=== PATIENT | female | born 1995 | race Caucasian/White ===

== ENCOUNTER 2021-08-22 00:29 | Emergency (ER) | payer OTHER, SELFPAY ==
[2021-08-22 00:30] VITALS: BP 132/57; PULSE 107; RESP 21; TEMP 39.3; O2SAT 98; BMI 28.8
[2021-08-22 00:34] VITALS: BP 132/57; PULSE 107; RESP 21; TEMP 39.3; O2SAT 98
--- NOTE | 2021-08-22 01:03 | EKG12_ITS ---
Test Reason : CP Blood Pressure : / mmHG Vent. Rate : 107 BPM Atrial Rate : 107 BPM P-R Int : 188 ms QRS Dur : 090 ms QT Int : 316 ms P-R-T Axes : 057 092 042 degrees QTc Int : 421 ms Sinus tachycardia Otherwise normal ECG Confirmed by ANGELA MASTERS, JEFFERSON ([id number]), clinical editor TAMMY MOFFETT ([id number]) on 08/24/2021 11:30:27 AM Referred By: NAHID Confirmed By:JEFFERSON MILLER MD
--- NOTE | 2021-08-22 01:07 | RAD_ITS ---
EXAM: XR CHEST, 1 VIEW CLINICAL INDICATION: Fever TECHNIQUE: Frontal view of the chest. This report was created using [employer] report generation technology. COMPARISON: None. FINDINGS: LUNGS AND PLEURAL SPACES: Question groundglass opacity at the right lower lung which may be infectious or inflammatory. No pneumothorax. No effusion. HEART: Unremarkable. Cardiac silhouette not enlarged. MEDIASTINUM: Central airways and mediastinal contour are unremarkable. BONES/JOINTS: Unremarkable. SOFT TISSUES: Unremarkable. RAD/Chest 1 View (Portable) IMPRESSION: Question groundglass opacity at the right lower lung which may be infectious or inflammatory. Electronically Signed: Michael Leigh MD at 1:52 EST Tel , Service support ,
[2021-08-22 01:13] LABS: Absolute Lymphocyte Count 2.46 X10^3/uL (0.83-4.51); Absolute Neutrophil Count 9.1 X10^3/uL (2.0-7.7); Basophil# 0.02 X10^3/uL; Basophil% 0.2 % (0-1); Eosinophil# 0.05 X10^3/uL; Eosinophils% 0.4 % (0-5); Hematocrit 38.2 % (37-47); Hemoglobin 12.2 g/dL (12.0-15.0); Lymphocyte # 2.46 X10^3/ul (0.83-4.51); Lymphocyte % 19.4 % (19-41); Mean Corp Hgb Conc 31.9 g/dL (32-36); Mean Corpuscular Hgb 27.2 pg (27.0-32.0); Mean Corpuscular Volume 85.3 fL (81-99); Monocyte# 0.98 X10^3/uL; Monocyte% 7.7 % (0-10); NRBC Flagged by Analyzer 0 % (0-5); Neutrophil # 9.12 X10^3/uL (2.7-7.7); Platelet Count 261 K/mm3 (150-450); RBC Distribution Width CV 13.7 % (11.6-14.6); RBC Distribution Width SD 43.1 fl (35.1-43.9); Red Blood Count 4.48 M/mm3 (4.2-5.4); White Blood Count 12.7 K/mm3 (4.4-11.0)
[2021-08-22] MEDS: Acetaminophen 500 MG Tablet 1000 MG PO (01:17)
[2021-08-22] MEDS: 0.9% Normal Saline 1,000 ML 1000 ML IV (01:17)
[2021-08-22 01:26] LABS: ALB/GLOB Ratio 0.9 RATIO (0.9-2.4); AST(SGOT) 16 U/L (15-37); Alanine Aminotransfer ALT/SGPT 14 U/L (13-56); Albumin, Serum 3.5 g/dL (3.2-5.0); Alkaline Phosphatase 82 U/L (45-117); Anion Gap 6 (5-15); BUN 8 mg/dL (7-18); BUN/Creat Ratio 11.2 RATIO (10-20); Calcium,Total 8.8 mg/dL (8.5-10.1); Chloride 106 mmol/L (98-107); Creatinine, Serum 0.72 mg/dL (0.55-1.02); EST Glomerular Filtration Rate 104 mL/min (>60); Est Glom Filt Rate - Afr Amer 126 mL/min (>60); Globulin 3.8 g/dL (2.2-4.2); Glucose 106 mg/dL (74-106); Potassium 3.6 mmol/L (3.5-5.1); Protein, Total 7.3 g/dL (6.4-8.2); Sodium Level 138 mmol/L (136-145)
--- NOTE | 2021-08-22 02:03 | EDS_ITS ---
HPI History of Present Illness Chief Complaint: Fever Informant: patient and spouse/S.O. Onset/Context/Timing Onset: Today Context: Sudden Onset Timing: Continuous Quality: Sharp Location: Right chest Worsened by: Coughing, breathing Relieved by: Nothing Narrative Narrative: Patient presents with fever and chest pain that began today. Patient describes her pain as sharp. Patient states it is over the right side of her chest. Patient states it is worse with coughing and deep breathing. Patient told EMS that it felt similar to prior cases of mastitis. Patient admits to subjective fevers and chills at home. Patient admits to a cough but denies any sputum production. Patient also admits to some nausea but denies any vomiting. Patient admits to some pain in her neck and back as well. PFSH PFSH Medical History no medical history no medical history Home Medications azithromycin 250 mg PO DAILY #4 tablet 08/22/21 [Rx Last Taken Unknown] Allergy/AdvReac Type Severity Reaction Status Date / Time No Known Allergies Allergy Verified 08/22/21 00:34 Surgical History History of tonsillectomy Social History Smoking Status: Never smoker ROS ROS ED Constitutional Constitutional ED: Reports chills, fever(s) and subjective Eyes Eyes: Denies blurry vision or change in vision ENT ENT ED: Denies rhinorrhea or sore throat Cardiovascular Cardiovascular: Reports chest pain; Denies palpitations Respiratory/Chest Respiratory/Chest: Reports cough and dyspnea Gastrointestinal Gastrointestinal: Reports nausea; Denies vomiting Genitourinary Genitourinary ED: Denies dysuria or hematuria Musculoskeletal Musculoskeletal: Reports back pain and neck pain Integumentary Denies abscess or rash Neurologic Neurologic: Denies headache(s) or weakness Allergic/Immunologic Allergic/Immunologic ED: Denies mouth swelling or urticaria EXAM Physical Exam Const Vital Signs: 08/22/21 00:30 08/22/21 00:34 08/22/21 00:36 Temperature 102.7 F H 102.7 F H Temperature Source Temporal Temporal Pulse Rate 107 H 107 H Respiratory Rate 21 H 21 H Respiratory Effort Normal Respiratory Pattern Tachypnea Blood Pressure 132/57 H 132/57 H Blood Pressure Mean 82 82 Pulse Ox 98 98 Oxygen Delivery Method Room Air Room Air 08/22/21 02:30 Temperature 99.0 F Temperature Source Temporal Pulse Rate 98 Respiratory Rate 22 H Respiratory Effort Respiratory Pattern Blood Pressure 122/60 H Blood Pressure Mean 80 Pulse Ox 96 Oxygen Delivery Method Room Air Positive well nourished and well developed General Appearance ED: well developed HEENT Reports moist mucous membranes Neck supple and no JVD Chest Wall inspection of chest normal and palpation of chest normal Resp normal respiratory effort and clear to auscultation bilaterally Cardio regular rate, regular rhythm and no murmurs GI normal to inspection, nondistended, normoactive bowel sounds and non-tender Palpation: soft Extremity normal to inspection General Extremety ED: Negative for edema or tenderness General Extremity: Negative for edema Neuro oriented x3, CN's II-XII intact bilaterally and no sensory deficits noted Sensorium / Orientation: alert Motor Exam: strength 5/5 throughout Psych mental status grossly normal Skin no rashes or lesions noted MDM MDM MDM Narrative Medical decision making narrative: Patient was given IV fluids and Tylenol here. EKG was obtained. On my interpretation, it showed a sinus tachycardia with a rate of 107. NM interval, QRS interval, and QTc intervals were all normal. Healy was normal. There are no acute ST or T wave changes. COVID-19 rapid antigen was obtained and was negative. CBC shows a mild leukocytosis of 12.7. Comprehensive metabolic profile was essentially within normal limits. Portable chest x-ray was obtained. There is 1 view. On my interpretation, there is a questionable groundglass infiltrate in the right lower lobe. There is no cardiomegaly noted. Bony thorax is normal. Radiologist also interpreted the x- rays and agrees. COVID-19 team PCR was obtained and was negative. Urinalysis does not show any evidence of urinary tract infection. Patient is afebrile on reevaluation. Patient was given a dose of Zithromax here. Patient was given a prescription for Zithromax. Patient was instructed to follow-up with her primary care physician in 5 to 7 days. Patient understood and was agreeable with the plan. All questions were answered. Lab Data Attestation: I reviewed the patient's lab results. Labs: Laboratory Results - last 24 hr 08/22/21 08/22/21 08/22/21 00:33 00:33 02:05 WBC 12.7 H RBC 4.48 Hgb 12.2 Hct 38.2 MCV 85.3 MCH 27.2 MCHC 31.9 L RDW Std Deviation 43.1 RDW Coeff of Love 13.7 Plt Count 261 MPV 9.0 Immature Gran % (Auto) 0.300 Neut % (Auto) 72.0 H Lymph % (Auto) 19.4 [place] % (Auto) 7.7 Eos % (Auto) 0.4 Baso % (Auto) 0.2 Absolute Neuts (auto) 9.1 H Absolute Lymphs (auto) 2.46 Nucleated RBC % 0 Sodium 138 Potassium 3.6 Chloride 106 Carbon Dioxide 26.0 Anion Gap 6 BUN 8 Creatinine 0.72 Estim Creat Clear Calc 84.30 Est GFR (MDRD) Af Amer 126 Est GFR (MDRD) Non-Af 104 BUN/Creatinine Ratio 11.2 Glucose 106 Calcium 8.8 Total Bilirubin 0.70 AST 16 ALT 14 Alkaline Phosphatase 82 Total Protein 7.3 Albumin 3.5 Globulin 3.8 Albumin/Globulin Ratio 0.9 Urine Color Straw Urine Clarity Clear Urine pH 6.5 Ur Specific Cat[place]ina 1.010 Urine Protein Negative Urine Glucose (UA) Normal Urine Ketones 50 H Urine Occult Blood Negative Urine Nitrite Negative Urine Bilirubin Negative Urine Urobilinogen Normal Ur Leukocyte Esterase Negative Urine RBC 0 SEEN Urine WBC 0 SEEN Ur Squamous Epith Cells 0 SEEN Urine Bacteria 0 SEEN Urine Mucus 0 SEEN COVID-19 (WILLIE) 08/22/21 02:20 WBC RBC Hgb Hct MCV MCH MCHC RDW Std Deviation RDW Coeff of Love Plt Count MPV Immature Gran % (Auto) Neut % (Auto) Lymph % (Auto) [place] % (Auto) Eos % (Auto) Baso % (Auto) Absolute Neuts (auto) Absolute Lymphs (auto) Nucleated RBC % Sodium Potassium Chloride Carbon Dioxide Anion Gap BUN Creatinine Estim Creat Clear Calc Est GFR (MDRD) Af Amer Est GFR (MDRD) Non-Af BUN/Creatinine Ratio Glucose Calcium Total Bilirubin AST ALT Alkaline Phosphatase Total Protein Albumin Globulin Albumin/Globulin Ratio Urine Color Urine Clarity Urine pH Ur Specific Cat[place]ina Urine Protein Urine Glucose (UA) Urine Ketones Urine Occult Blood Urine Nitrite Urine Bilirubin Urine Urobilinogen Ur Leukocyte Esterase Urine RBC Urine WBC Ur Squamous Epith Cells Urine Bacteria Urine Mucus COVID-19 (WILLIE) Not Detected Radiography Chest X-Ray - ED: 1 View, Read by ED Physician, Read by Radiologist and Right Infiltrate Diagnostic Testing: Clinical Impression(s) from Imaging Studies Chest X-Ray 08/22/21 01:07 IMPRESSION: Question groundglass opacity at the right lower lung which may be infectious or inflammatory. Electronically Signed: Michael Leigh MD at 1:52 EST Tel , Service support , EKG Initial EKG: Attestation: I personally reviewed and interpreted this EKG as follows: Interpretation: No Acute Injury Pattern and Sinus Tachycardia (107) Discharge Plan Triage Chief Complaint: Fever ED Provider: Raji Gonzales Dx/Rx/DC Orders Clinical Impression: Community acquired pneumonia Instructions: ED Pneumonia (Adult) Prescriptions: New azithromycin [azithromycin] 250 MG tablet 250 mg PO DAILY Qty: 4 RF: 0 Primary Care Provider: Tejinder Glynn Referrals: Tejinder Glynn DO [Primary Care Provider] - 5-7 Days Disposition Disposition: Home, Self Care
[2021-08-22 02:12] LABS: Bacteria 0 SEEN /hpf (None Seen); Color, Urine Straw (Yellow); Glucose, Dipstick Normal (Normal); Ketone-Dipstick 50 mg/dl (Negative); Leukocyte Esterase-Dipstick Negative /ul (Negative); Mucous, Urine 0 SEEN /hpf (<or=2+); Nitrite-Dipstick Negative (Negative); Occult Blood-Urine Negative /ul (Negative); Protein-Dipstick Negative (Negative); Red Blood Cells-Urine 0 SEEN /hpf (0-5); Squamous Epithelial Cells - UA 0 SEEN /hpf (5-10); Urine Bilirubin Dipstick Negative (Negative); Urine Clarity Clear (Clear); Urine Urobilinogen Normal (Normal); Urine pH 6.5 (5.0 - 8.0); White Blood Cells 0 SEEN /hpf (0-5)
[2021-08-22 02:30] VITALS: BP 122/60; PULSE 98; RESP 22; TEMP 37.2; O2SAT 96
[2021-08-22] MEDS: Azithromycin 250 MG Tablet 500 MG PO (05:40)
[2021-08-22 05:41] VITALS: BP 114/78; PULSE 104; RESP 18; TEMP 37.2; O2SAT 99
== END 2021-08-22 05:42 | disposition home or self-care (01) ==
PROVIDERS: Emergency Provider Emergency Medicine; PCP Family Medicine
DX: J18.9 Pneumonia, unspecified organism (principal)
CPT/HCPCS: 71045; 80053; 81001; 85025; 87426; 87635; 90471; 93005; 96360; 99285; J7030; U0005; A4216; U0003